=== PATIENT | female | born 1995 | race Caucasian/White ===

== ENCOUNTER 2018-03-11 16:31 | Outpatient (CLI) | payer OTHER ==
[~2018-03-11 16:31] MED LIST: OMNIPAQUE 350 MG/ML, 100ML BOTTLE ONE
== END 2018-03-11 23:59 | disposition home or self-care (01) ==
LOC: RAD 16:31
PROVIDERS: ATTEND Family Medicine
DX: R10.0 Acute abdomen (principal)
CPT/HCPCS: 74177; Q9967

== ENCOUNTER → 2019-02-10 | Outpatient (CLI) | payer OTHER | END | disposition home or self-care (01) | LOC: CFH 09:15 | PROVIDERS: ATTEND Orthopaedic Surgery ==

== ENCOUNTER 2020-06-22 06:58 | Emergency (ER) | payer OTHER ==
[~2020-06-22] VITALS: Ht 167.6 cm; Wt 76.2 kg
[2020-06-22] MEDS ORDERED: ONDANSETRON 2MG/ML, 2ML IVPush ONE (07:30)
[2020-06-22] MEDS ORDERED: SODIUM CHLORIDE 0.9% 1,000ML IVBOLUS ONE (07:30)
[2020-06-22] MEDS ORDERED: ONDANSETRON 2MG/ML, 2ML ONE (07:38)
[2020-06-22 07:50] LABS: BASOPHILS % (AUTO) 1 % (0-1); EOSINOPHILS % (AUTO) 5 % (1-7); LYMPHOCYTES % (AUTO) 30 % (22-44); MEAN CORPUSCULAR HEMOGLOBIN 22.7 pg (27.0-34.8); MEAN CORPUSCULAR HGB CONC 33.1 g/dL (32.4-35.8); MEAN PLATELET VOLUME 7.8 fL (7.4-10.4); MONOCYTES % (AUTO) 8 % (2-9); NEUTROPHILS % (AUTO) 56 % (42-75); PLATELET COUNT 363 x10^3/uL (130-400); RED BLOOD COUNT 5.76 x10^6/uL (3.82-5.3); RED CELL DISTRIBUTION WIDTH 14.8 % (9.6-15.2)
--- NOTE | 2020-06-22 07:50 | NUR ---
Pt arrived with complaints of sharp constant pain in the LRQ that started at 4pm yesterday. Pt states that she doesn't feel bloated but she thinks she looks bloated, this pain is also accompanied by nausea but no vomitting. Connected to BP and O2 monitors, IV placed, MAGGI LINDSEY. Currently has IVF running and given meds for nausea. Mother at bedside. No other requests at this time.
[2020-06-22 07:52] LABS: MD NO
[2020-06-22 07:58] LABS: ALANINE AMINOTRANSFERASE 30 U/L (12-78); ALBUMIN 3.8 g/dL (3.4-5.0); ANION GAP 4 mmol/L (5-15); CALCIUM 8.9 mg/dL (8.5-10.1); CHLORIDE 109 mmol/L (98-107); CREATININE 0.97 mg/dL (0.55-1.02)
[2020-06-22 08:03] LABS: ALKALINE PHOSPHATASE 42 U/L (45-117); BILIRUBIN,TOTAL 0.8 mg/dL (0.2-1.0); TOTAL PROTEIN 8.4 g/dL (6.4-8.2)
--- NOTE | 2020-06-22 08:17 | NUR ---
CT CANNOT FIND PATIENT; IN BATHROOM?? WILL CHECK LATER
--- NOTE | 2020-06-22 08:27 | NUR ---
Pt to CT
--- NOTE | 2020-06-22 08:36 | NUR ---
Pt back from CT
[2020-06-22 08:42] LABS: MICROSCOPIC NOT IND
[2020-06-22] MEDS ORDERED: OMNIPAQUE 350 MG/ML, 100ML BOTTLE ONE (08:56)
[2020-06-22 09:35] VITALS: BP 118/62
== END 2020-06-22 09:40 | disposition home or self-care (01) ==
LOC: ED 07:30
DX: R10.11 Right upper quadrant pain (principal); R10.31 Right lower quadrant pain; R05 Cough; R11.2 Nausea with vomiting, unspecified
CPT/HCPCS: 36415; 74177; 80053; 81003; 83690; 84702; 85025; 96361; 96374; 99285; J2405; J7030; Q9967